=== PATIENT | male | born 1975 | race Two or more races ===

== ENCOUNTER 2017-09-18 23:10 | Emergency (ER) | payer BC, OTHER ==
[2017-09-18] MEDS: DEXAMETHASONE 10 MG/ML 1 ML INJ IM (23:41)
[2017-09-18] MEDS: morphine 4 MG/ML VIAL IM (23:41)
[2017-09-19] MEDS: HYDROmorphONE 2 MG/ML SYG IM (01:13)
== END 2017-09-19 01:15 | disposition home or self-care (01) ==
LOC: FTE 23:10
DX: M54.31 Sciatica, right side (principal); M46.96 Unspecified inflammatory spondylopathy, lumbar region; Z87.891 Personal history of nicotine dependence
CPT/HCPCS: 72100; 96372; 99284-25